=== PATIENT | male | born 1945 | race Caucasian/White ===

== ENCOUNTER 2020-02-25 13:00 | Day surgery (SDC) | payer MEDICARE ==
[~2020-02-25] VITALS: Ht 154.9 cm; Wt 48.0 kg
[2020-02-25 12:32] VITALS: BP 115/70
[~2020-02-25 13:00] MED LIST: ALBU18HF INH; ALBUTEROL SULFATE 2.5 MG/3 ML NPPB PRN; ALBUTEROL/IPRATROPIUM 2.5MG/0.5MG, 3 ML NPPB PRN; FAMO20TA7 PO; FENTANYL PF 100 MCG/2ML IV PRN; LABETALOL 5MG/ML, 20ML IV PRN; LACTATED RINGERS 1,000 ML IV SCH; PROMETHAZINE 25 MG/ML, 1ML IV PRN; hydrALAzine 20 MG/ML, 1ML IV PRN
[2020-02-25] MEDS ORDERED: ONDANSETRON 2MG/ML, 2ML ONE (13:02)
[2020-02-25] MEDS ORDERED: PHENYLEPHRINE 10 MG/ML ONE ×2 (13:02→13:21)
[2020-02-25] MEDS ORDERED: SUCCINYLCHOLINE 20 MG/ML, 10ML ONE (13:02)
[2020-02-25] MEDS ORDERED: ROCURONIUM 10 MG/ML,10ML ONE (13:02)
[2020-02-25] MEDS ORDERED: DEXAMETHASONE 4 MG/ML, 1ML ONE (13:02)
[2020-02-25] MEDS ORDERED: PROPOFOL 10 MG/ML, 20ML ONE (13:02)
[2020-02-25] MEDS ORDERED: FENTANYL PF 100 MCG/2ML ONE (13:09)
[2020-02-25] MEDS ORDERED: ALBUTEROL/IPRATROPIUM 2.5MG/0.5MG, 3 ML ONE (14:15)
[2020-02-25] MEDS ORDERED: ACETAMINOPHEN 650 MG/20.3 ML UDC ONE (14:30)
[2020-02-25] MEDS ORDERED: ACETAMINOPHEN 325 MG TABLET PO PRN (15:00)
== END 2020-02-25 23:59 | disposition home or self-care (01) ==
LOC: OR 13:00
PROVIDERS: ATTEND Internal Medicine Gastroenterology
DX: C15.9 Malignant neoplasm of esophagus, unspecified (principal); K22.2 Esophageal obstruction; K31.89 Other diseases of stomach and duodenum; Z98.890 Other specified postprocedural states
CPT/HCPCS: 43237; 43248; C1725; J0330; J1100; J2370; J2405; J2704; J3010; J7120